=== PATIENT | male | born 1990 | race Caucasian/White ===

== ENCOUNTER 2017-12-14 16:03 | Emergency (ER) | payer OTHER ==
[2017-12-14] MEDS ORDERED: ACETAMINOPHEN 500 MG TAB ONE (16:24)
[2017-12-14] MEDS ORDERED: ACETAMINOPHEN 500 MG TAB PO ONE (16:28)
[2017-12-14] MEDS ORDERED: NS 1,000 ML IV ONE ×2 (16:28→18:32)
[2017-12-14] MEDS ORDERED: NS 1,000 ML IV SCH (16:45)
--- NOTE | 2017-12-14 16:59 | EDPHY ---
H & P Time Seen by Provider: 12/14/17 16:22 HPI/ROS: Chief complaint. Cold, shivering HPI. 27-year-old male presents emergency department with fever. He had a headache last night and then developed chills. Slight shortness of breath and cough. Muscle aches. Slight central chest discomfort that he describes as dull. Nausea and vomiting but no abdominal pain. No urinary symptoms. No rash. No known exposure to Infectious Disease. ROS Constitutional. Fever and chills Eyes. no problems with vision ENT. no sore throat, no nasal drainage Cardiovascular. Dull anterior chest discomfort Respiratory. Slight shortness of breath and cough Abdominal. no abdominal pain, no nausea/vomiting, no diarrhea . no problems urinating MS. no calf pain/swelling, no neck/back pain, no joint pain Skin. no rash Lymph. no swollen glands Neuro. headache, no dizziness, no difficulty walking or with speech Past Medical/Surgical History: Healthy Social History: , nonsmoker, no alcohol Smoking Status: Never smoked Physical Exam: General Appearance: Alert male moderate distress vital signs show temp 39.6 degrees with heart rate 136 Eyes: Pupils equal and round no pallor or injection. ENT, pharynx mildly injected without exudate. Mucous membranes are moist Respiratory: Mild inspiratory expiratory rhonchi. No retractions Cardiovascular: Regular rate and rhythm with tachycardia Gastrointestinal: Abdomen is soft and nontender, no masses, bowel sounds normal. Neurological: Awake and alert, sensory and motor exams grossly normal. Skin: Warm and dry, no rashes. Musculoskeletal: Neck is supple nontender. Extremities symmetrical, full range of motion. Psychiatric: Patient is oriented X 3, there is no agitation. Constitutional: Initial Vital Signs Temperature (C) 38.1 C 12/14/17 16:09 Heart Rate 136 H 12/14/17 16:09 Respiratory Rate 20 12/14/17 16:09 Blood Pressure 138/73 H 12/14/17 16:09 O2 Sat (%) 95 12/14/17 16:09 O2 Delivery Mode Room Air Allergies/Adverse Reactions: cephalexin [From Keflex] Allergy (Verified 12/14/17 16:11) Penicillins Allergy (Verified 12/14/17 16:11) Sulfa (Sulfonamide Antibiotics) Allergy (Verified 12/14/17 16:12) Home Medications: Medication Instructions Recorded NK [No Known Home Meds] 12/14/17 Medical Decision Making - Diagnostics Imaging Results: Imaging Impressions Chest X-Ray 12/14/17 17:06 Impression: No pneumonia. Procedures: IV normal saline. Sepsis workup ED Course/Re-evaluation: Re-evaluation at 5:45 p.m. Patient is feeling much better. Re-evaluation at 6:30 p.m.. Patient feeling better. Heart rate is now 100- 105. Still slight headache. Still achy but fevers better. Patient alert and conversational and moving his head spontaneously without evidence for stiff neck. The patient, his , and I discussed imaging and lab results. We discussed treatment plan including criteria for return importance of follow-up and further evaluation. They expressed understanding and agreement Differential Diagnosis: I considered sepsis, pneumonia, urinary tract infection, influenza. I think this is likely viral infection and does not require antibiotics. No evidence for sepsis. I also do not think the patient has meningitis - Data Points Laboratory Results: Laboratory Results 12/14/17 16:21 12/14/17 16:21 12/14/17 12/14/17 12/14/17 17:45 17:30 16:30 WBC RBC Hgb Hct MCV MCH MCHC RDW Plt Count MPV Neut % (Auto) Lymph % (Auto) [place] % (Auto) Eos % (Auto) Baso % (Auto) Nucleat RBC Rel Count Absolute Neuts (auto) Absolute Lymphs (auto) Absolute Monos (auto) Absolute Eos (auto) Absolute Basos (auto) Absolute Nucleated RBC Immature Gran % Immature Gran # VBG Lactic Acid 0.9 mmol/L mmol/L (0.7-2.1) Sodium Potassium Chloride Carbon Dioxide Anion Gap BUN Creatinine Estimated GFR Glucose Calcium Urine Color YELLOW Urine Appearance CLEAR Urine pH 5.0 (5.0-7.5) Ur Specific [place] 1.019 (1.002-1.030) Urine Protein NEGATIVE (NEGATIVE) Urine Ketones NEGATIVE (NEGATIVE) Urine Blood NEGATIVE (NEGATIVE) Urine Nitrate NEGATIVE (NEGATIVE) Urine Bilirubin NEGATIVE (NEGATIVE) Urine Urobilinogen NEGATIVE EU EU (0.2-1.0) Ur Leukocyte Esterase NEGATIVE (NEGATIVE) Urine RBC 1-3 /hpf /hpf (0-3) Urine WBC 1-3 /hpf /hpf (0-3) Ur Epithelial Cells NONE SEEN /lpf /lpf (NONE-1+) Urine Mucus TRACE /lpf /lpf (NONE-1+) Urine Glucose NEGATIVE (NEGATIVE) Nasal Influenza A PCR NEGATIVE FOR FLU A (NEGATIVE) Nasal Influenza B PCR NEGATIVE FOR FLU B (NEGATIVE) 12/14/17 12/14/17 16:21 16:21 WBC 5.95 10^3/uL 10^3/uL (3.80-9.50) RBC 4.70 10^6/uL 10^6/uL (4.40-6.38) Hgb 14.6 g/dL g/dL (13.7-17.5) Hct 43.0 % % (40.0-51.0) MCV 91.5 fL fL (81.5-99.8) MCH 31.1 pg pg (27.9-34.1) MCHC 34.0 g/dL g/dL (32.4-36.7) RDW 12.3 % % (11.5-15.2) Plt Count 203 10^3/uL 10^3/uL (150-400) MPV 9.2 fL fL (8.7-11.7) Neut % (Auto) 79.1 % H % (39.3-74.2) Lymph % (Auto) 17.5 % % (15.0-45.0) [place] % (Auto) 0.5 % L % (4.5-13.0) Eos % (Auto) 2.2 % % (0.6-7.6) Baso % (Auto) 0.5 % % (0.3-1.7) Nucleat RBC Rel Count 0.0 % % (0.0-0.2) Absolute Neuts (auto) 4.71 10^3/uL 10^3/uL (1.70-6.50) Absolute Lymphs (auto) 1.04 10^3/uL 10^3/uL (1.00-3.00) Absolute Monos (auto) 0.03 10^3/uL L 10^3/uL (0.30-0.80) Absolute Eos (auto) 0.13 10^3/uL 10^3/uL (0.03-0.40) Absolute Basos (auto) 0.03 10^3/uL 10^3/uL (0.02-0.10) Absolute Nucleated RBC 0.00 10^3/uL 10^3/uL (0-0.01) Immature Gran % 0.2 % % (0.0-1.1) Immature Gran # 0.01 10^3/uL 10^3/uL (0.00-0.10) VBG Lactic Acid Sodium 143 mEq/L mEq/L (135-145) Potassium 3.9 mEq/L mEq/L (3.5-5.2) Chloride 102 mEq/L mEq/L (97-110) Carbon Dioxide 27 mEq/l mEq/l (22-31) Anion Gap 14 mEq/L mEq/L (8-16) BUN 16 mg/dL mg/dL (7-23) Creatinine 1.0 mg/dL mg/dL (0.7-1.3) Estimated GFR > 60 Glucose 66 mg/dL L mg/dL (70-100) Calcium 9.1 mg/dL mg/dL (8.5-10.4) Urine Color Urine Appearance Urine pH Ur Specific [place] Urine Protein Urine Ketones Urine Blood Urine Nitrate Urine Bilirubin Urine Urobilinogen Ur Leukocyte Esterase Urine RBC Urine WBC Ur Epithelial Cells Urine Mucus Urine Glucose Nasal Influenza A PCR Nasal Influenza B PCR Medications Given: Discontinued Medications Acetaminophen (Tylenol) 1,000 mg PO EDNOW ONE Stop: 12/14/17 16:29 Last Admin: 12/14/17 16:29 Dose: 1,000 mg Sodium Chloride (Ns) 1,000 mls @ 3,000 mls/hr IV ONCE ONE Stop: 12/14/17 16:47 Last Admin: 12/14/17 16:29 Dose: 1,000 mls Departure - Departure Disposition: Home, Routine, Self-Care Clinical Impression: Viral syndrome Condition: Good Instructions: Fever in Adults (ED) Additional Instructions: Drink plenty of fluids and stay hydrated. Tylenol 1000 mg every 4-6 hours, ibuprofen 600 mg every 6 hr for fever and achiness. Return for worsening symptoms. Recheck in 2 days if not improved Referrals: NONE *PRIMARY CARE P,. [Primary Care Provider] - As per Instructions
[2017-12-14 17:12] LABS: PLATELET COUNT 203 10^3/uL (150-400)
[2017-12-14 19:12] VITALS: BP 115/75
== END 2017-12-14 19:13 | disposition home or self-care (01) ==
DX: B34.9 Viral infection, unspecified (principal); E86.9 Volume depletion, unspecified